=== PATIENT | female | born 1985 | race African-American/Black ===

== ENCOUNTER 2017-01-08 23:58 | Emergency (ER) | payer OTHER ==
[2017-01-09 01:08] VITALS: BP 157/99; PULSE 85; TEMP 98.3; BMI 39.3
--- NOTE | 2017-01-09 01:22 | PDOC ---
History of Present Illness - General History Source: Patient Exam Limitations: No Limitations - History of Present Illness Initial Comments: 01/09/17 01:48 Patient is a 31 year old woman with no significant past medical history who presents to the ED with complaints of left ear pain that began one month ago. Patient reports left ear pain began one month ago after putting Q tip inside ear. She reports pain feels like there is cotton stuck in her ear. Patient does not rate the pain but does state that the pain has become increasingly uncomfortable. She reports a hx of ear infections as a child, but states she has had none during her adult life. Denies nausea, vomiting. Denies fever, chills. Denies sore throat, cough. Denies discharge from ear. Denies contact with sick individuals, out of state travel. Denies any other symptoms. Allergies: None Social history: No smoking. No alcohol. No illicit drugs. Surgical history: Cholecystectomy. PMD: Dr. Yusuf. <Rohit Smith - Last Filed: 01/09/17 01:59> <Carito Fontanez - Last Filed: 01/12/17 07:57> - General Chief Complaint: Pain Stated Complaint: EAR PROBLEM Time Seen by Provider: 01/09/17 00:40 Past History <Rohit Smith - Last Filed: 01/09/17 01:59> - Past Medical History Other medical history: Pt denies - Surgical History Cholecystectomy: Yes - Suicide/Smoking/Psychosocial Hx Smoking History: Current every day smoker Have you smoked in the past 12 months: Yes Number of Cigarettes Smoked Daily: 10 Information on smoking cessation initiated: No Hx Alcohol Use: No Drug/Substance Use Hx: No <Carito Fontanez - Last Filed: 01/12/17 07:57> - Past Medical History Allergies/Adverse Reactions: Allergies Allergy/AdvReac Type Severity Reaction Status Date / Time No Known Allergies Allergy Verified 01/09/17 01:03 Home Medications: Ambulatory Orders Omeprazole 40 mg PO DAILY 01/09/17 Review of Systems - Review of Systems Able to Perform ROS?: Yes Comments:: 01/09/17 01:48 GENERAL/CONSTITUTIONAL: No fever or chills. No weakness. HEAD, EYES, EARS, NOSE AND THROAT: +Left ear pain. No change in vision. No ear discharge. No sore throat. GASTROINTESTINAL: No nausea, vomiting, diarrhea or constipation. GENITOURINARY: No dysuria, frequency, or change in urination. CARDIOVASCULAR: No chest pain or shortness of breath. RESPIRATORY: No cough, wheezing, or hemoptysis. MUSCULOSKELETAL: No joint or muscle swelling or pain. No neck or back pain. SKIN: No rash NEUROLOGIC: No headache, vertigo, loss of consciousness, or change in strength/ sensation. ENDOCRINE: No increased thirst. No abnormal weight change. HEMATOLOGIC/LYMPHATIC: No anemia, easy bleeding, or history of blood clots. ALLERGIC/IMMUNOLOGIC: No hives or skin allergy. <Rohit Smith - Last Filed: 01/09/17 01:59> *Physical Exam - Vital Signs Last Vital Signs Temp Pulse Resp BP Pulse Ox 98.3 F 85 18 157/99 99 01/09/17 01:06 01/09/17 01:06 01/09/17 01:06 01/09/17 01:06 01/09/17 01:06 <Rohit Smith - Last Filed: 01/09/17 01:59> - Vital Signs Last Vital Signs Temp Pulse Resp BP Pulse Ox 98.3 F 85 18 157/99 99 01/09/17 01:06 01/09/17 01:06 01/09/17 01:06 01/09/17 01:06 01/09/17 01:06 - Physical Exam Comments: GENERAL: Awake, alert, and fully oriented, in no acute distress HEAD: No signs of trauma EYES: PERRLA, EOMI, sclera anicteric, conjunctiva clear ENT: Auricles normal inspection, hearing grossly normal, nares patent, oropharynx clear without exudates. Moist mucosa. L ear with small piece of hard cerumen abutting the TM. R ear with dried cerumen peripherally. TM intact, no effusion. NECK: Normal ROM, supple, no lymphadenopathy, JVD, or masses LUNGS: Breath sounds equal, clear to auscultation bilaterally. No wheezes, and no crackles HEART: Regular rate and rhythm, normal S1 and S2, no murmurs, rubs or gallops ABDOMEN: Soft, nontender, normoactive bowel sounds. No guarding, no rebound. No masses EXTREMITIES: Normal range of motion, no edema. No clubbing or cyanosis. No cords, erythema, or tenderness NEUROLOGICAL: Cranial nerves II through XII grossly intact. Normal speech, normal gait SKIN: Warm, Dry, normal turgor, no rashes or lesions noted. <Carito Fontanez - Last Filed: 01/12/17 07:57> Medical Decision Making - Medical Decision Making Irrigated patient's ear with warm water/peroxide in ED, some of the cerumen loosened and came out. However, there is still cerumen abutting the TM, likely causing her symptoms. Recommended that she continue this at home, as attempting to remove the cerumen with a scoop will most definitely result in a perf. <Carito Fontanez - Last Filed: 01/12/17 07:57> *DC/Admit/Observation/Transfer - Attestations Scribe Attestion: 01/09/17 01:59 Documentation prepared by Rohit Smith, acting as medical educator for Carito Fontanez MD. <Rohit Smith - Last Filed: 01/09/17 01:59> - Discharge Dispostion Admit: No <Carito Fontanez - Last Filed: 01/12/17 07:57> Diagnosis at time of Disposition: Cerumen debris on tympanic membrane Qualifiers: Laterality: left Qualified Code(s): H61.22 - Impacted cerumen, left ear - Discharge Dispostion Disposition: HOME Condition at time of disposition: Stable - Referrals Referrals: Randall Bennett MD [Staff Physician] - - Patient Instructions Printed Discharge Instructions: How to Irrigate Your Ear, DI for Ear Pain-Adult Additional Instructions: USE 50:50 MIX OF WARM WATER AND PEROXIDE, INSTILL IN THE AFFECTED EAR, LET SIT FOR 5 MINUTES, THEN DRAIN. DO THIS TWICE PER DAY TO SOFTEN THE WAX.
== END 2017-01-09 01:54 | disposition home or self-care (01) ==
LOC: JER 23:58
DX: H61.22 Impacted cerumen, left ear (principal)
CPT/HCPCS: 99281-25; 99282-25

== ENCOUNTER 2017-04-23 15:42 | Emergency (ER) | payer OTHER ==
[2017-04-23 16:15] VITALS: PULSE 76; TEMP 98.5; BMI 41.1
[2017-04-23] MEDS ORDERED: ACETAMINOPHEN 500 MG TABLET (FP) PO ONE (16:18)
--- NOTE | 2017-04-23 16:18 | PDOC ---
Rapid Medical Evaluation Chief Complaint: Headache Time Seen by Provider: 04/23/17 16:15 Medical Evaluation: Allergies Allergy/AdvReac Type Severity Reaction Status Date / Time No Known Allergies Allergy Verified 01/09/17 01:03 04/23/17 16:15 I have performed a brief in-person evaluation of this patient. The patient presents with a chief complaint of headache with photosensitivity. Denies nausea or blurred vision. Recently told by doctor that she had elevated blood pressure, told to change diet but states no change in diet so far. Has follow up with pmd in one month. Treated headache with caffeine and ibuprofen with no success. Pertinent physical exam findings: NAD HEENT: PERRL, supple neck lungs clear bilat heart s2s1 no pedal edema I have ordered the following: acetaminophen given The patient will proceed to the ED for further evaluation. 04/23/17 16:19
[2017-04-23] MEDS ORDERED: ALBUTEROL SO4 2.5/IPRATROPIUM 0.5 INH SOL 3 ML VIAL.NEB. NEB ONE (17:56)
[2017-04-23] MEDS ORDERED: ONDANSETRON *ODT* 4 MG TABLET ONE (17:56)
[2017-04-23 18:02] VITALS: BP 141/85
--- NOTE | 2017-04-23 18:23 | PDOC ---
History of Present Illness <Hiwot Dudley - Last Filed: 04/23/17 18:46> - General History Source: Patient Exam Limitations: No Limitations - History of Present Illness Initial Comments: 04/23/17 18:32 The patient is a 31 year old female, with a significant past medical history of gastritis and 6 months of recent nuance high blood pressure, untreated monitored by doctor, who presents to the emergency department with, one week of a persistent headache. Patient reports using Aleve, with relief. Patient reports using Tylenol, without relief. Secondary to her symptoms, she reports nausea without emesis. The patient also complains of intermittent left hand numbness which she is being followed up by her PCP who referred her to a neurologist. She reports her last menses to be a week ago. She denies photophobia. She denies recent fevers or chills. She denies recent vomit, diarrhea or constipation. She denies recent dysuria, frequency, urgency or hematuria. She denies recent chest pain or shortness of breath. Allergies: NKA Past surgical history: None reported. Social history: Nonsmoker. Denies EtOH use and recreational drug use. Primary Care Physician: Dr. Adriane Yusuf <Purvi Whitley - Last Filed: 04/23/17 19:49> - General Chief Complaint: Headache Stated Complaint: MIGRAINES Time Seen by Provider: 04/23/17 16:15 Past History - Surgical History Cholecystectomy: Yes - Suicide/Smoking/Psychosocial Hx Smoking History: Current every day smoker Have you smoked in the past 12 months: Yes Number of Cigarettes Smoked Daily: 10 Information on smoking cessation initiated: No Hx Alcohol Use: No Drug/Substance Use Hx: No <Hiwot Dudley - Last Filed: 04/23/17 18:46> <Purvi Whitley - Last Filed: 04/23/17 19:49> - Past Medical History Allergies/Adverse Reactions: Allergies Allergy/AdvReac Type Severity Reaction Status Date / Time No Known Allergies Allergy Verified 01/09/17 01:03 Home Medications: Ambulatory Orders Naproxen [Naprosyn -] 500 mg PO BID #14 tablet 04/23/17 Review of Systems - Review of Systems Able to Perform ROS?: Yes Comments:: 04/23/17 18:33 CONSTITUTIONAL: Absent: fever, no chills, no fatigue EYES: Absent: visual changes ENT: Absent: ear pain, no sore throat CARDIOVASCULAR: Absent: chest pain, no palpitations RESPIRATORY: Absent: cough, no SOB GI: Present: +Nausea. Absent: abdominal pain, no vomiting, no constipation, no diarrhea GENITOURINARY: Absent: dysuria, no frequency, no hematuria MUSKULOSKELETAL: Absent: back pain, no arthralgia, no myalgia SKIN: Absent: rash NEURO: Present: + Generalized headache (resolved with Tylenol). <Purvi Whitley - Last Filed: 04/23/17 19:49> *Physical Exam - Vital Signs Last Vital Signs Temp Pulse Resp BP Pulse Ox 98.5 F 76 20 141/85 100 04/23/17 16:12 04/23/17 16:12 04/23/17 16:12 04/23/17 18:02 04/23/17 16:12 <Hiwot Dudley - Last Filed: 04/23/17 18:46> - Vital Signs Last Vital Signs Temp Pulse Resp BP Pulse Ox 98.5 F 76 20 141/85 100 04/23/17 16:12 04/23/17 16:12 04/23/17 16:12 04/23/17 18:02 04/23/17 16:12 - Physical Exam Comments: 04/23/17 18:34 GENERAL: Well-appearing, well-nourished. No apparent distress. HEENT: Normocephalic, atraumatic. PERRL, EOM intact. CARDIOVASCULAR: Normal S1, S2. Regular rate and rhythm. PULMONARY: Clear to auscultation bilaterally. ABDOMEN: Soft, non-distended, non-tender. EXTREMITIES: Normal ROM in all four extremities. No gross deformities. SKIN: Warm, dry. No rash NEUROLOGICAL: No focal neurological deficits. <Purvi Whitley - Last Filed: 04/23/17 19:49> ED Treatment Course - ADDITIONAL ORDERS Additional order review: Laboratory Results 04/23/17 17:50 Urine HCG, Qual Negative - RADIOLOGY Radiology Studies Ordered: Category Date Time Status HEAD CT WITHOUT CONTRAST [CT] Stat CT Scan 04/23/17 18:18 Ordered - Medications Given in the ED: ED Medications Discontinued Medications Generic Name Dose Route Start Last Admin Trade Name Freq PRN Reason Stop Dose Admin Acetaminophen 1,000 mg 04/23/17 16:18 04/23/17 18:16 Tylenol - PO 04/23/17 16:19 1,000 mg ONCE ONE Administration <Hiwot Dudley - Last Filed: 04/23/17 18:46> - ADDITIONAL ORDERS Additional order review: Laboratory Results 04/23/17 17:50 Urine HCG, Qual Negative - Medications Given in the ED: ED Medications Discontinued Medications Generic Name Dose Route Start Last Admin Trade Name Carolee PRN Reason Stop Dose Admin Acetaminophen 1,000 mg 04/23/17 16:18 04/23/17 18:16 Tylenol - PO 04/23/17 16:19 1,000 mg ONCE ONE Administration <Purvi Whitley - Last Filed: 04/23/17 19:49> Medical Decision Making - Medical Decision Making 04/23/17 18:48 A/P: Patient here for evaluation of headache that has been persistent for 1 week that response to Advil. Not responsive to Tylenol. Patient with no photophobia, no neurological deficit. There is nausea without vomiting. Patient reports being given Tylenol however in triage that resolved the headache. Patient also states that after she drinks a cup coffee the headache is resolved. Because of longevity of headache with recent uncontrolled blood pressure I will send patient for CT scan of the head. Low suspicion however need to rule out based upon blood pressure. CT the head is negative for acute intracranial pathology, I will discharge patient on Naprosyn, follow-up with neurology. Increase fluid intake. I discussed the physical exam findings, ancillary test results and final diagnoses with the patient. I answered all of the patient's questions. The patient was satisfied with the care received and felt comfortable with the discharge plan and treatment plan. The patient will call to arrange follow-up and will return to the Emergency Department with any new, persistent or worsening symptoms. <Hiwot Dudley - Last Filed: 04/23/17 18:46> *DC/Admit/Observation/Transfer - Discharge Dispostion Admit: No <Hiwot Dudley - Last Filed: 04/23/17 18:46> - Attestations Scribe Attestion: 04/23/17 18:33 Documentation prepared by Purvi Whitley, acting as medical front desk coordinator for Hiwot Dudley NP. <Purvi Whitley - Last Filed: 04/23/17 19:49> Diagnosis at time of Disposition: Migraine Qualifiers: Migraine type: without aura Status migrainosus presence: without status migrainosus Intractability: not intractable Qualified Code(s): G43.009 - Migraine without aura, not intractable, without status migrainosus - Discharge Dispostion Disposition: HOME Condition at time of disposition: Stable - Prescriptions Prescriptions: Naproxen [Naprosyn -] 500 mg PO BID #14 tablet - Referrals Referrals: Adriane Yusuf [Primary Care Provider] - - Patient Instructions Printed Discharge Instructions: DI for Migraine Additional Instructions: Please make sure to follow up with her primary care doctor for blood pressure control. Increase your fluid intake, recommend cool air humidifier when sleeping Please follow up with neurology as directed by your primary care doctor. - Post Discharge Activity Forms/Work/School Notes: Back to Work
== END 2017-04-23 18:55 | disposition home or self-care (01) ==
LOC: JERFT 15:42
DX: G43.009 Migraine without aura, not intractable, without status migrainosus (principal); I10 Essential (primary) hypertension; F17.210 Nicotine dependence, cigarettes, uncomplicated
CPT/HCPCS: 70450-TC; 84703; 99281-25

== ENCOUNTER 2017-10-26 13:00 | Emergency (ER) | payer OTHER ==
[2017-10-26 13:33] VITALS: BP 148/85; PULSE 84; TEMP 99.5; BMI 42.0
--- NOTE | 2017-10-26 13:41 | PDOC ---
History of Present Illness - General Chief Complaint: Blood Pressure Problem Stated Complaint: MIGRAINE/8 WKS Time Seen by Provider: 10/26/17 13:35 - History of Present Illness Initial Comments: 10/26/17 14:23 32 yo F w a hx of HTN, GERD, UTI 2 weeks back, CHAO is here 8 weeks as confirmed by [facility] last week when she was here, LMP in August she is unsure of exact date, with what she says is a bad left sided migraine. Positive photophobia, positive phonophobia. She has not taken any pain meds for it. She vomited yesterday and earlier today. She says the vomitus was NB/NB. Patient says this is not the worst NICK of her life. Denies seeing floaters. She gets many migraines, and this is similar to prior ones she's had but this one has lasted longer than usual and she came here for analgesic relief. She doesn' t know what meds she can take for the migraine during . Denies nuchal rigidity, recent fevers, chest pain, SOB, abdominal pain. She is taking nifedipine for HTN and cephalexin for her UTI from last week. She is also complaining of nausea that has resulted from a pill stuck in the back of her throat. 10/26/17 14:28 Past History - Past Medical History Allergies/Adverse Reactions: Allergies Allergy/AdvReac Type Severity Reaction Status Date / Time No Known Allergies Allergy Verified 10/26/17 13:29 Home Medications: Ambulatory Orders Naproxen [Naprosyn -] 500 mg PO BID #14 tablet 04/23/17 Cephalexin Monohydrate [Keflex -] 500 mg PO BID #14 capsule 10/17/17 Metoclopramide HCl [Reglan -] 10 mg PO TID #30 tablet 10/18/17 Ranitidine [Zantac -] 150 mg PO BID #30 tablet 10/18/17 COPD: No DVT: No HTN: Yes - Surgical History Cholecystectomy: Yes - Immunization History Immunization Up to Date: Yes - Suicide/Smoking/Psychosocial Hx Smoking History: Never smoked Have you smoked in the past 12 months: No Number of Cigarettes Smoked Daily: 10 Information on smoking cessation initiated: No Hx Alcohol Use: No Drug/Substance Use Hx: No Substance Use Type: None Review of Systems - Review of Systems Comments:: 10/26/17 14:31 CONSTITUTIONAL: Absent: fever, chills, diaphoresis, generalized weakness, malaise, loss of appetite HEENT: Positive: Throat discomfort due to s/t lodged in throat Absent: rhinorrhea, nasal congestion, throat pain, throat swelling, difficulty swallowing, mouth swelling, ear pain, eye pain, visual Changes CARDIOVASCULAR: Absent: chest pain, syncope, palpitations, irregular heart rate, lightheadedness , peripheral edema RESPIRATORY: Absent: cough, shortness of breath, dyspnea with exertion, orthopnea, wheezing, stridor, hemoptysis GASTROINTESTINAL: Absent: abdominal pain, abdominal distension, nausea, vomiting, diarrhea, constipation, melena, hematochezia GENITOURINARY: Positive: frequency, urgency, recent UTI Absent: dysuria, hematuria, flank pain, genital pain MUSCULOSKELETAL: Absent: myalgia, arthralgia, joint swelling SKIN: Absent: rash, itching, pallor HEMATOLOGIC/IMMUNOLOGIC: Absent: easy bleeding, easy bruising, lymphadenopathy, frequent infections ENDOCRINE: Absent: unexplained weight gain, unexplained weight loss, heat intolerance, cold intolerance NEUROLOGIC: Positive: headache Absent: focal weakness or paresthesias, dizziness, unsteady gait, seizure, mental status changes, bladder or bowel incontinence PSYCHIATRIC: Absent: anxiety, depression, suicidal or homicidal ideation, hallucinations. *Physical Exam - Vital Signs Last Vital Signs Temp Pulse Resp BP Pulse Ox 99.5 F 84 16 148/85 98 10/26/17 13:30 10/26/17 13:30 10/26/17 13:30 10/26/17 13:30 10/26/17 13:30 - Physical Exam Comments: 10/26/17 14:33 NEUROLOGICAL: Alert, awake, appropriate. Cranial nerves 2-12 intact. No deficits to light touch and temperature in face, upper extremities and lower extremities. No motor deficits in the in face, upper extremities and lower extremities. Normoreflexic in the upper and lower extremities. Normal speech. Toes are down-going bilaterally. Gait is normal without ataxia. GENERAL: Well developed, well nourished. Awake and alert. Mild distress due to NICK HEENT: Normocephalic, atraumatic. PERRLA, EOMI. No conjunctival pallor. Sclera are non- icteric. Moist mucous membranes. Oropharynx is clear. NECK: Supple. Full ROM. No JVD. Carotid pulses 2+ and symmetric, without bruits. No thyromegaly. No lymphadenopathy. CARDIOVASCULAR: Regular rate and rhythm. No murmurs, rubs, or gallops. Distal pulses are 2+ and symmetric. PULMONARY: No evidence of respiratory distress. Lungs clear to auscultation bilaterally. No wheezing, rales or rhonchi. ABDOMINAL: Gravid uterus consistent w/ 8 weeks . Soft. Non-tender. Non-distended. No rebound or guarding. No organomegaly. MUSCULOSKELETAL Normal range of motion at all joints. No bony deformities or tenderness. No CVA tenderness. EXTREMITIES: No cyanosis. No clubbing. No edema. No calf tenderness. SKIN: Warm and dry. Normal capillary refill. No rashes. No jaundice. PSYCHIATRIC: Cooperative. Good eye contact. Appropriate mood and affect. ED Treatment Course - LABORATORY CBC & Chemistry Diagram: 10/26/17 14:38 10/26/17 14:38 Medical Decision Making - Medical Decision Making 10/26/17 14:34 32 yo F w hx of HTN, GERD, UTI, CHAO here with a bad left temporal headache. She has not taken any pain meds for it. Denies worst headache of her life. No nuchal rigidity on exam. negative kernig, negative brudinsky. No fevers. Plan: Cbc, Cmp, ua, tylenol, benadryl, metoclopramide, NS, Re-assess. Re-assessment: After analgesia patient feels much better and no longer has a headache. 10/26/17 16:17 *DC/Admit/Observation/Transfer Diagnosis at time of Disposition: Migraine - Discharge Dispostion Disposition: HOME Condition at time of disposition: Improved Decision to Admit order: No - Referrals Referrals: Adriane Yusuf [Primary Care Provider] - Randall Bennett MD [Staff Physician] - - Patient Instructions Additional Instructions: Please make sure to follow up with your primary care doc in the next 5 days to ensure you are feeling better and your blood pressure is under control. Drink plenty of fluids. Please make sure to follow up with the ear nose and throat doctor we are referring you to if the sensation in your throat comes back. Gargle salt water if the sensation comes back as well. Come back to the ER if you get a terrible splitting headache that you cannot handle, or if you develop a bad fever. Take Tylenol for pain as needed. - Post Discharge Activity
[2017-10-26] MEDS ORDERED: SODIUM CHLORIDE 0.9% 500 ML INFUS.BAG IV ONE (14:06)
[2017-10-26] MEDS ORDERED: ACETAMINOPHEN 1000 MG/100 ML VIAL (NON FORMULARY) IVPB ONE (14:06)
[2017-10-26] MEDS ORDERED: METOCLOPRAMIDE HCL INJECTION 10 MG/2 ML VIAL IVPB ONE (14:16)
--- NOTE | 2017-10-26 14:21 | PDOC ---
Attending Attestation - HPI HPI: 10/26/17 14:28 The patient is a 32 year old female, 8 weeks as confirmed by US last week, , with a significant past medical history of HTN, GERD, UTI (2 weeks ago), who presents to the emergency department with a "bad left sided migraine." She reports some sensitivity to light and sound. She has not taken any pain meds for her symptoms. She reports nausea with one episode of emesis yesterday and another today. She denies hematemesis. She attributes her nausea to the sensation of " a stuck nifedipine pill" to the back of her throat. The patient denies chest pain, shortness of breath, headache and dizziness. The patient denies fever, chills, nausea, vomit, diarrhea and constipation. The patient denies dysuria, frequency, urgency and hematuria. - Physicial Exam PE: 10/26/17 16:33 ROS: A complete review of 10 out of 10 review of systems is taken and is negative apart from what is previously mentioned below and in the HPI. Vitals: Triage vital signs reviewed General Appearance: No acute distress, well nourished, well developed Head: Atraumatic Eyes: Pupils equal reactive round, extraocular movement intact Ears: TM's normal bilaterally Nose: Nares patent bilaterally; no nasal congestion Throat: Posterior oropharynx without erythema, mucous membranes moist Neck: Supple; No nuchal rigidity Chest Wall: Nontender Cardiac: Regular rate and rhythm, no murmurs, no rubs, no gallops Lungs: Clear to auscultation bilateral, good air movement bilaterally Abdomen: Soft, nondistended, normal bowel sounds, nontender to palpation Genitourinary: Rectal: Exam deferred Extremities: Full range of motion to all extremities, no cyanosis, clubbing, or edema Skin: Warm and dry, no rashes or lesions, no rash, no petechiae Neuro: AOX3; Cranial Nerves 2-12 grossly intact, Strength intact to all extremities, Sensation intact to all extremities, gait normal Psych: Normal mood, normal affect - Medical Decision Making 10/26/17 14:38 32 year old female, 8 weeks as confirmed by US last week, , with a significant past medical history of HTN, GERD, UTI (2 weeks ago), presents to the emergency department with a "bad left sided migraine." Plan: labs, meds, reassess <Casi Saldivar - Last Filed: 10/26/17 16:33> - Resident Resident Name: Amol Guzman - ED Attending Attestation I have performed the following: I have examined & evaluated the patient, The case was reviewed & discussed with the resident, I agree w/resident's findings & plan, Exceptions are as noted - Medical Decision Making Reevaluation headache resolved. After lidocaine no sensation of pill stuck in throat. Patient provided with ENT follow-up in case symptoms return. Patient noted to be slightly hypertensive but she is on a medication for this. I recommended that she follow up with her primary care provider and discuss with with her SPOT BILLING CLERK as well on Sunday Findings, need for follow-up, strict return instructions discussed patient. <Harrison Ramos - Last Filed: 10/26/17 16:51>
[2017-10-26] MEDS ORDERED: ACETAMINOPHEN INJECTION 100 ML IVPB ONE (14:23)
[2017-10-26] MEDS ORDERED: METOCLOPRAMIDE HCL INJECTION 10 MG/2 ML VIAL ONE (14:23)
[2017-10-26 14:47] LABS: BASO % 0.9 % (0-2.0); EOS % 0.7 % (0-4.5); HEMATOCRIT 38.3 % (32.4-45.2); HEMOGLOBIN 12.8 GM/dL (10.7-15.3); LYMPH % 29.5 % (8-40); MCH 28.7 pg (25.7-33.7); MCHC 33.3 g/dl (32.0-36.0); MEAN CELL VOLUME 86.3 fl (80-96); MONO % 8.2 % (3.8-10.2); NEUT % 60.7 % (42.8-82.8); PLATELET COUNT 382 K/MM3 (134-434); RBC 4.44 M/mm3 (3.60-5.2); WHITE BLOOD COUNT 10.8 K/mm3 (4.0-10.0)
[2017-10-26] MEDS ORDERED: LIDOCAINE VISCOUS 2% ORAL/TOP 100 ML BOTTLE MM ONE (15:05)
[2017-10-26 15:27] LABS: CHLORIDE 105 mmol/L (98-107); SODIUM 139 mmol/L (136-145)
[2017-10-26 15:35] LABS: ALBUMIN 3.6 g/dl (3.4-5.0); ANION GAP 7 (8-16); BILIRUBIN,TOTAL 0.1 mg/dL (0.2-1.0); BLOOD UREA NITROGEN 7 mg/dL (7-18); CO2 27 mmol/L (21-32); CREATININE 0.8 mg/dL (0.55-1.02); GLUCOSE,RANDOM 85 mg/dL (74-106); SGPT/ALT 22 U/L (12-78); TOT PROT 7.6 g/dl (6.4-8.2)
[2017-10-26 15:53] LABS: ALK PHOS 59 U/L (45-117)
[2017-10-26 15:54] LABS: POTASSIUM 4.1 mmol/L (3.5-5.1)
[2017-10-26 15:55] LABS: SGOT/AST 19 U/L (15-37)
[2017-10-26] MEDS ORDERED: LIDOCAINE VISCOUS 2% ORAL/TOP 20 ML UNIT-DOSE CUP ONE (16:20)
[2017-10-26 16:48] LABS: URINE APPEARANCE CLEAR; URINE BILIRUBIN NEGATIVE (<2.0 mg/dL); URINE COLOR STRAW; URINE GLUCOSE (UA) NEGATIVE (NEGATIVE); URINE KETONE NEGATIVE (NEGATIVE); URINE LEUK ESTERASE NEGATIVE (NEGATIVE); URINE NITRITE NEGATIVE (NEGATIVE); URINE PROTEIN NEGATIVE (NEGATIVE); URINE UROBILINOGEN NEGATIVE mg/dL (0.2-1.0)
--- NOTE | 2017-10-27 11:25 | EKG ---
Test Reason : Blood Pressure : / mmHG Vent. Rate : 079 BPM Atrial Rate : 079 BPM P-R Int : 158 ms QRS Dur : 086 ms QT Int : 378 ms P-R-T Axes : 029 034 008 degrees QTc Int : 433 ms NORMAL SINUS RHYTHM NONSPECIFIC T WAVE ABNORMALITY ABNORMAL ECG NO PREVIOUS ECGS AVAILABLE Confirmed by DAMIAN BOND, VITALY ([id number]) on 10/27/2017 11:24:53 AM Referred By: Confirmed By:VITALY SALGADO MD
== END 2017-10-26 17:01 | disposition home or self-care (01) ==
LOC: JER 13:00
PROC: 3E0337Z Introduction of Electrolytic and Water Balance Substance into Peripheral Vein, Percutaneous Approach (ICD-10-PCS; principal; 2017-10-26)
PROC: 3E033GC Introduction of Other Therapeutic Substance into Peripheral Vein, Percutaneous Approach (ICD-10-PCS; 2017-10-26)
PROC: 3E033GC Introduction of Other Therapeutic Substance into Peripheral Vein, Percutaneous Approach (ICD-10-PCS; 2017-10-26)
PROC: 3E033NZ Introduction of Analgesics, Hypnotics, Sedatives into Peripheral Vein, Percutaneous Approach (ICD-10-PCS; 2017-10-26)
DX: O26.891 Other specified pregnancy related conditions, first trimester (principal); G43.909 Migraine, unspecified, not intractable, without status migrainosus; O16.1 Unspecified maternal hypertension, first trimester; Z87.440 Personal history of urinary (tract) infections; Z3A.08 8 weeks gestation of pregnancy
CPT/HCPCS: 36415; 80053; 81003; 84702; 85025; 93005; 93010; 96374; 96375; 99281-25; J0131

== ENCOUNTER 2017-12-19 21:58 | Emergency (ER) | payer OTHER ==
[2017-12-19 22:01] VITALS: BP 144/88; PULSE 102; TEMP 97.9; BMI 41.7
--- NOTE | 2017-12-19 23:24 | PDOC ---
History of Present Illness - General Chief Complaint: Pain Stated Complaint: MIGRAINE, CRAMPS History Source: Patient Exam Limitations: No Limitations - History of Present Illness Initial Comments: 12/19/17 23:36 This patient is a 32-year-old 011, presently 15 weeks who presents emergency department with a complaint of severe headache as well as abdominal cramping. Patient states that since becoming she's noticed intermittent headaches. She's been seen in this emergency department previously for the same. She reports a gradual onset of a headache at approximately 3 PM located throughout the head, rated 8-9/10, described as throbbing, associated with photophobia. No nuchal rigidity. She also reports abdominal cramping which is been present for approximately 2-3 weeks. Cramping is intermittent, typically last 20-30 minutes and self resolves. 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 No dysuria, no flank pain. Patient denies trauma. She has not taken Tylenol for her symptoms today at all PMH: PCOS, HTN PSH: Cholecystectomy Medications: vitamins ALL: NKDA Social: Denies alcohol, drug, cigarette use FH: non contributory ROS: GENERAL/CONSTITUTIONAL: No: fever, chills, weakness, loss of appetite. HEAD, EYES, EARS, NOSE AND THROAT: No: change in vision, ear pain, discharge, sore throat, throat swelling. CARDIOVASCULAR: No: chest pain, lightheadedness, palpitations, syncope RESPIRATORY: No: cough, shortness of breath, wheezing, hemoptysis, stridor. GASTROINTESTINAL: Yes: abdominal cramping No: nausea, vomiting, diarrhea GENITOURINARY: No: dysuria, hematuria, frequency, urgency, flank pain. MUSCULOSKELETAL: No: back pain, neck pain, joint pain, muscle swelling or pain SKIN: No: lesions, pallor, rash or easy bruising. NEUROLOGIC: Yes: headache No:vertigo, paresthesias, weakness ENDOCRINE: No: unexplained weight gain or loss HEMATOLOGIC/LYMPHATIC: No: anemia, easy bleeding, swelling nodes. PE: GENERAL: The patient is in no acute distress. HEAD: Normal with no signs of trauma. EYES: PERRLA, EOMI, sclera anicteric, conjunctiva clear. ENT: Ears normal, nares patent, oropharynx clear without exudates. Moist mucous membranes. NECK: Normal range of motion, supple without nuchal rigidity LUNGS: Breath sounds equal, clear to auscultation bilaterally. No wheezes, and no crackles. HEART:Regular rate and rhythm, normal S1 and S2 without murmur, rub or gallop. ABDOMEN: Gravid abdomen, Soft, nontender, hypoactive bowel sounds. No guarding , no rebound. EXTREMITIES: Normal range of motion, no edema. NEUROLOGICAL: Cranial nerves II through XII grossly intact. Normal speech. No focal neurological deficits. MUSCULOSKELETAL: Back non-tender to palpation, no CVA tenderness SKIN: No rashes or lesions noted. Past History - Past Medical History Allergies/Adverse Reactions: Allergies Allergy/AdvReac Type Severity Reaction Status Date / Time No Known Allergies Allergy Verified 12/19/17 22:01 Home Medications: Ambulatory Orders Naproxen [Naprosyn -] 500 mg PO BID #14 tablet 04/23/17 Cephalexin Monohydrate [Keflex -] 500 mg PO BID #14 capsule 10/17/17 Metoclopramide HCl [Reglan -] 10 mg PO TID #30 tablet 10/18/17 Ranitidine [Zantac -] 150 mg PO BID #30 tablet 10/18/17 Metoclopramide HCl [Reglan] 5 mg PO TID PRN #21 tablet 12/20/17 COPD: No DVT: No HTN: Yes - Surgical History Cholecystectomy: Yes - Immunization History Immunization Up to Date: Yes - Suicide/Smoking/Psychosocial Hx Smoking History: Never smoked Have you smoked in the past 12 months: No Number of Cigarettes Smoked Daily: 10 Hx Alcohol Use: No Drug/Substance Use Hx: No Substance Use Type: None *Physical Exam - Vital Signs Last Vital Signs Temp Pulse Resp BP Pulse Ox 97.9 F 102 H 18 144/88 98 12/19/17 21:59 12/19/17 21:59 12/19/17 21:59 12/19/17 21:59 12/19/17 21:59 ED Treatment Course - LABORATORY CBC & Chemistry Diagram: 12/19/17 23:30 12/19/17 23:30 Medical Decision Making - Medical Decision Making 12/19/17 23:42 This a 32-year-old male presenting to the emergency Department with a gradual onset of headache which she has previously had in the past. She also has had 3 weeks of abdominal cramping. Differential diagnosis includes but is not limited to: Migraine, tension type headache I doubt intracranial infection/meningitis given patient has no nuchal rigidity, has previously had these symptoms. I doubt dural sinus thrombosis as patient previously has had these symptoms and has no neurological deficits. Abdominal cramping: Round ligament pain, labor, threatened AB Will do: Labs, IV fluids, Reglan, Tylenol, Benadryl Will do ultrasound to evaluate Will reassess 12/20/17 02:00 Laboratory Tests 12/19/17 12/19/17 12/20/17 23:30 23:30 01:30 WBC 12.7 H Hgb 12.3 Hct 36.7 Plt Count 368 BUN 8 Creatinine 0.7 Urine Blood Negative Urine Nitrite Negative Ur Leukocyte Esterase Negative Upon re assessment Pt states that she feels better H/A / now No fevers or chills US: 15 weeks 3 days, FHR 170s, Cervix long and closed Will discharge to home Follow up with OB [facility] Pt has seen her OB for headaches in the recent past Was asked to follow up with Neuro which she has not done Pt encouraged to make an appointment for Neurology [facility] In the mean time Will give Reglan to be taken in addition to Tylenol for headache Pt encouraged to stay hydrated Return to the ER for worsening or persistent symptoms Clinical Impression: headache, repeat presentation *DC/Admit/Observation/Transfer Diagnosis at time of Disposition: Headache Qualifiers: Headache type: unspecified Headache chronicity pattern: episodic headache Intractability: not intractable Qualified Code(s): R51 - Headache - Discharge Dispostion Disposition: HOME Condition at time of disposition: Stable Decision to Admit order: No - Referrals - Patient Instructions Printed Discharge Instructions: DI for Headache Additional Instructions: Thank you for coming into the emergency department today. Please be sure to follow-up with your hosiery mater/primary care physician Return to the ER for any other concerns or complaints - Post Discharge Activity
[2017-12-19] MEDS ORDERED: ACETAMINOPHEN 1000 MG/100 ML VIAL (NON FORMULARY) IVPB ONE (23:28)
[2017-12-19] MEDS ORDERED: METOCLOPRAMIDE HCL INJECTION 10 MG/2 ML VIAL IVPUSH ONE (23:28)
[2017-12-19] MEDS ORDERED: SODIUM CHLORIDE 1,000 ML IV STA (23:28)
[2017-12-19] MEDS ORDERED: METOCLOPRAMIDE HCL INJECTION 10 MG/2 ML VIAL ONE (23:35)
[2017-12-19] MEDS ORDERED: ACETAMINOPHEN INJECTION 100 ML IVPB ONE (23:35)
[2017-12-19 23:50] LABS: BASO % 1.5 % (0-2.0); HEMATOCRIT 36.7 % (32.4-45.2); HEMOGLOBIN 12.3 GM/dL (10.7-15.3); MCH 28.6 pg (25.7-33.7); MCHC 33.6 g/dl (32.0-36.0); MEAN CELL VOLUME 85.2 fl (80-96); MEAN PLT VOLUME 7.7 fl (7.5-11.1); MONO % 7.9 % (3.8-10.2); NEUT % 61.6 % (42.8-82.8); PLATELET COUNT 368 K/MM3 (134-434); RBC 4.31 M/mm3 (3.60-5.2); RDW 12.7 % (11.6-15.6); WHITE BLOOD COUNT 12.7 K/mm3 (4.0-10.0)
[2017-12-20 00:30] LABS: ALBUMIN 3.2 g/dl (3.4-5.0); ANION GAP 6 MMOL/L (8-16); BLOOD UREA NITROGEN 8 mg/dL (7-18); CALCIUM 9.1 mg/dL (8.5-10.1); CHLORIDE 105 mmol/L (98-107); CO2 27 mmol/L (21-32); CREATININE 0.7 mg/dL (0.55-1.02); GLUCOSE,RANDOM 92 mg/dL (74-106); POTASSIUM 3.7 mmol/L (3.5-5.1); SGOT/AST 20 U/L (15-37); SGPT/ALT 24 U/L (13-61); SODIUM 138 mmol/L (136-145)
[2017-12-20 00:32] LABS: ALK PHOS 55 U/L (45-117); BILIRUBIN,TOTAL 0.1 mg/dL (0.2-1.0); TOT PROT 7.3 g/dl (6.4-8.2)
[2017-12-20 01:43] LABS: URINE APPEARANCE CLEAR; URINE BILIRUBIN NEGATIVE (<2.0 mg/dL); URINE COLOR STRAW; URINE GLUCOSE (UA) NEGATIVE (NEGATIVE); URINE KETONE NEGATIVE (NEGATIVE); URINE LEUK ESTERASE NEGATIVE (NEGATIVE); URINE NITRITE NEGATIVE (NEGATIVE); URINE PROTEIN NEGATIVE (NEGATIVE); URINE UROBILINOGEN NEGATIVE mg/dL (0.2-1.0)
== END 2017-12-20 02:20 | disposition home or self-care (01) ==
LOC: JER 21:58
PROC: 3E033NZ Introduction of Analgesics, Hypnotics, Sedatives into Peripheral Vein, Percutaneous Approach (ICD-10-PCS; principal; 2017-12-19)
PROC: 3E033GC Introduction of Other Therapeutic Substance into Peripheral Vein, Percutaneous Approach (ICD-10-PCS; 2017-12-19)
PROC: 3E033GC Introduction of Other Therapeutic Substance into Peripheral Vein, Percutaneous Approach (ICD-10-PCS; 2017-12-19)
DX: O26.892 Other specified pregnancy related conditions, second trimester (principal); R51 Headache; R10.30 Lower abdominal pain, unspecified; Z3A.15 15 weeks gestation of pregnancy
CPT/HCPCS: 36415; 76815-TC; 80053; 81003; 85025; 86850; 86900; 86901; 87086; 99281-25; J0131; J7030

== ENCOUNTER 2018-01-24 10:09 | Emergency (ER) | payer OTHER ==
[2018-01-24 10:15] VITALS: BP 146/94; PULSE 106; TEMP 98.9; BMI 41.7
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
[2018-01-24] MEDS ORDERED: ACETAMINOPHEN 325 MG TABLET (FP) PO ONE (10:53)
[2018-01-24 13:01] LABS: URINE APPEARANCE TURBID; URINE BILIRUBIN NEGATIVE (<2.0 mg/dL); URINE COLOR YELLOW; URINE GLUCOSE (UA) NEGATIVE (NEGATIVE); URINE KETONE TRACE (NEGATIVE); URINE LEUK ESTERASE 1+ (NEGATIVE); URINE NITRITE NEGATIVE (NEGATIVE); URINE PROTEIN 1+ (NEGATIVE); URINE UROBILINOGEN NEGATIVE mg/dL (0.2-1.0)
[2018-01-24 13:14] LABS: EPI CELLS MODERATE /HPF (FEW); URINE MUCUS MANY
== END 2018-01-24 14:09 | disposition home or self-care (01) ==
LOC: JER 10:09
DX: O99.89 Other specified diseases and conditions complicating pregnancy, childbirth and the puerperium (principal); M54.5 Low back pain; V43.52XA Car driver injured in collision with other type car in traffic accident, initial encounter; Y92.411 Interstate highway as the place of occurrence of the external cause; Y93.89 Activity, other specified; Y99.8 Other external cause status; O16.2 Unspecified maternal hypertension, second trimester; Z3A.20 20 weeks gestation of pregnancy
CPT/HCPCS: 76801-TC; 81003; 81015; 99281-25

== ENCOUNTER 2018-02-02 15:50 | Emergency (ER) | payer BC, OTHER ==
[2018-02-02 15:56] VITALS: BMI 41.7
[2018-02-02] MEDS: DEXTROSE 5%-LACTATED RINGERS 500 ML IV ONE ×2 (18:00→19:30)
[2018-02-02 18:41] VITALS: BP 141/84; PULSE 94; TEMP 98.9
[2018-02-02 19:27] LABS: URINE APPEARANCE CLEAR; URINE BILIRUBIN NEGATIVE (<2.0 mg/dL); URINE COLOR YELLOW; URINE GLUCOSE (UA) 1+ (NEGATIVE); URINE KETONE NEGATIVE (NEGATIVE); URINE LEUK ESTERASE NEGATIVE (NEGATIVE); URINE NITRITE NEGATIVE (NEGATIVE); URINE PROTEIN NEGATIVE (NEGATIVE); URINE UROBILINOGEN NEGATIVE mg/dL (0.2-1.0)
[2018-02-02] MEDS ORDERED: DEXTROSE 5%-LACTATED RINGERS 500 ML IV ONE (19:30)
== END 2018-02-02 21:55 | disposition home or self-care (01) ==
LOC: JER 15:50
DX: O26.892 Other specified pregnancy related conditions, second trimester (principal); R10.30 Lower abdominal pain, unspecified; Z3A.21 21 weeks gestation of pregnancy
CPT/HCPCS: 76801-TC; 76817-TC; 81003; 99282-25

== ENCOUNTER 2018-04-06 23:13 | Emergency (ER) | payer BC ==
[2018-04-06 23:21] VITALS: TEMP 99.1; BMI 42.0
--- NOTE | 2018-04-07 02:17 | PDOC ---
History of Present Illness - General Chief Complaint: Sore Throat Stated Complaint: THROAT PAIN, PREG @ 30 WKS Time Seen by Provider: 04/07/18 01:11 History Source: Patient Exam Limitations: No Limitations - History of Present Illness Initial Comments: 04/07/18 02:08 HISTORY OF PRESENT ILLNESS: Social 32-year-old is currently 31 weeks presents emergency department for evaluation of sore throat, moist cough and posttussive vomiting. Patient denies any fevers, chills, lightheadedness, dizziness, chest pain, shortness of breath. Patient reports she did not get a flu vaccine this year. 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 No recent travel or sick contacts. PAST MEDICAL HISTORY: Denies past medical history SURGICAL HISTORY: Denies ALLERGIES: No known drug allergies REVIEW OF SYSTEMS General/Constitutional: Denies fever or chills. Denies weakness, weight change. HEENT: Denies change in vision. Denies ear pain or discharge. +sore throat. Cardiovascular: Denies chest pain or shortness of breath. Respiratory: Moist productive cough. Denies wheezing, or hemoptysis. Gastrointestinal: Denies nausea, diarrhea or constipation. Denies rectal bleeding. Post-tussive vomiting. Genitourinary: Denies dysuria, frequency, or change in urination. Musculoskeletal: Denies joint or muscle swelling or pain. Denies neck or back pain. Skin and breasts: Denies rash or easy bruising. Neurologic: Denies headache, vertigo, loss of consciousness, or loss of sensation. Psychiatric: Denies depression or anxiety. Endocrine: Denies increased thirst. Denies abnormal weight change. Hematologic/Lymphatic: Denies anemia, easy bleeding, or history of blood clots. Allergic/Immunologic: Denies hives or skin allergy. Denies latex allergy. PHYSICAL EXAM General Appearance: Well-appearing, appropriately dressed. No apparent distress , no intoxication. HEENT: EOMI, PERRLA, normal voice, TMs normal. No conjunctival pallor. No photophobia, scleral icterus. Oropharynx erythematous without lesions or exudates present. Neck: Supple. Trachea midline. No tenderness, rigidity, carotid bruit, stridor , lymphadenopathy, or thyromegaly. Respiratory/Chest: Lungs CTAB. No shortness of breath, chest tenderness, respiratory distress, accessory muscle use. No crackles, rales, rhonchi, stridor , wheezing, dullness Cardiovascular: RRR. S1, S2. No JVD, murmur, bradycardia, tachycardia. Gastrointestinal/Abdominal: Normal bowel sounds. Gravid abdomen. No tenderness or rebound tenderness. No organomegaly, pulsatile mass, guarding, hernia, hepatomegaly, splenomegaly. Musculoskeletal/Extremities: Normal inspection. FROM of all extremities, normal capillary refill. Pelvis Stable. No CVA tenderness. No tenderness to extremities, pedal edema, swelling, erythema or deformity. Integumentary: Appropriate color, dry, warm. 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 Fully oriented, alert. Appropriate mood/affect. Motor strength 5/5. No appreciable EOM palsy, facial droop or sensory deficit. Past History - Past Medical History Allergies/Adverse Reactions: Allergies Allergy/AdvReac Type Severity Reaction Status Date / Time No Known Allergies Allergy Verified 04/06/18 23:20 Home Medications: Ambulatory Orders Nifedipine [Nifedipine ER] 60 mg PO DAILY 02/02/18 Pnv No.95/Ferrous Fum/Folic AC [ Vitamin Tablet] 1 each PO DAILY COPD: No DVT: No HTN: Yes - Surgical History Cholecystectomy: Yes - Immunization History Immunization Up to Date: Yes - Suicide/Smoking/Psychosocial Hx Smoking History: Never smoked Have you smoked in the past 12 months: No Number of Cigarettes Smoked Daily: 10 Hx Alcohol Use: No Drug/Substance Use Hx: No Substance Use Type: None *Physical Exam - Vital Signs Last Vital Signs Temp Pulse Resp BP Pulse Ox 99.1 F 109 H 20 143/100 97 04/06/18 23:18 04/06/18 23:18 04/06/18 23:18 04/06/18 23:18 04/06/18 23:18 Moderate Sedation - Procedure Monitoring Vital Signs: Procedure Monitoring Vital Signs Temperature 99.1 F 04/06/18 23:18 Pulse Rate 109 H 04/06/18 23:18 Respiratory Rate 20 04/06/18 23:18 Blood Pressure 143/100 04/06/18 23:18 O2 Sat by Pulse Oximetry (%) 97 04/06/18 23:18 Medical Decision Making - Medical Decision Making 04/07/18 02:17 A/P: 32-year-old 31 weeks with 2 days of upper respiratory symptoms Oropharynx erythematous without lesions or exudates TMs within normal limits bilaterally Lungs clear to auscultation bilaterally RRR. No murmur, rub or gallop noted Exam is consistent with upper respiratory illness. As patient is I will collect rapid strep testing and influenza testing. Patient is refusing analgesics at this time. 04/07/18 03:15 Rapid strep testing influenza testing are negative. I will discharge the patient home with symptomatic treatment of upper respiratory infection. Patient has been instructed to follow-up with her shift lab technician or primary doctor for reevaluation. *DC/Admit/Observation/Transfer Diagnosis at time of Disposition: URI (upper respiratory infection) Qualifiers: URI type: unspecified viral URI Qualified Code(s): J06.9 - Acute upper respiratory infection, unspecified - Discharge Dispostion Disposition: HOME Condition at time of disposition: Stable Decision to Admit order: No - Referrals - Patient Instructions Additional Instructions: Rest, drink lots of fluids: Teas, water, soups, Pedialyte Saltwater gargles Steamy showers/seem to face break up mucus Avoid contact with others until fevers and cough resolved Lots of handwashing and good hygiene Continue [id number] medications for symptomatic relief Tylenol or Motrin for fever and pain Followup with private physician in one to 2 days as needed Return to emergency department for worsened symptoms, fevers, dehydration - Post Discharge Activity
[2018-04-07 03:38] VITALS: BP 138/98; PULSE 101
== END 2018-04-07 03:40 | disposition home or self-care (01) ==
LOC: JER 23:13
DX: O26.893 Other specified pregnancy related conditions, third trimester (principal); O99.513 Diseases of the respiratory system complicating pregnancy, third trimester; J06.9 Acute upper respiratory infection, unspecified; Z3A.31 31 weeks gestation of pregnancy
CPT/HCPCS: 87070; 87804; 87880; 99281-25